=== PATIENT | female | born 1985 | race Caucasian/White ===

== ENCOUNTER 2024-04-30 10:29 | Outpatient (CLI) | payer BC, SELFPAY ==
[2024-04-30 18:16] LABS: Microscopic, Urine URINE MICROSCOPIC (MICROSCOPIC)
[2024-04-30 18:59] LABS: Basophils # 0.1 K/mm3 (0-0.2); Basophils % 1.2 % (0.1-2.0); Eosinophils # 0.1 K/mm3 (0.0-0.4); Eosinophils % 1.8 % (0.1-12.0); Hematocrit 45.3 % (37.0-47.0); Hemoglobin 14.4 g/dL (12.2-16.2); Lymphocytes # 2.4 K/mm3 (0.7-4.5); Lymphocytes % 37.1 % (10-50); Mean Corpuscular HGB Conc 31.9 g/dL (31.8-35.4); Mean Corpuscular Hemoglobin 30.2 pg (27.0-31.2); Mean Corpuscular Volume 94.7 fl (81-99); Mean Platelet Volume 8.6 fl (7.4-10.4); Monocytes # 0.3 K/mm3 (0.1-1.0); Monocytes % 5.3 % (1.7-9.3); Neutrophils # 3.5 K/mm3 (1.8-7.8); Neutrophils % 54.5 % (37.0-80.0); Platelet Count 292 K/mm3 (142-424); Red Blood Count 4.78 M/mm3 (4.20-5.40); Red Cell Distribution Width 14.2 % (11.5-17.5); White Blood Count 6.5 K/mm3 (4.8-10.8)
[2024-04-30 19:10] LABS: Appearance,Urine TURBID (Clear); Bilirubin,Urine Negative (Negative); Blood, Urine Negative (Negative); Color,Urine YELLOW (Yellow); Glucose,Urine (UA) Negative (Negative); Ketones,Urine TRACE (Negative); Leukocyte Esterase,Urine Negative (Negative); Nitrate,Urine Negative (Negative); Protein,Urine Negative (Negative); Specific Gravity, Urine >= 1.030 (1.005-1.030)
[2024-04-30 19:24] LABS: Hemoglobin A1C 4.9 % (4.0-6.0)
[2024-04-30 19:26] LABS: Alanine Aminotransferase 15 U/L (12-78); Albumin Level 4.4 g/dl (3.5-5.0); Albumin/Globulin Ratio 1.4 (1.1-1.8); Alkaline Phosphatase 83 U/L (38-126); Anion Gap 12.2 mEq/L (5-15); Aspartate Amino Transferase 24 U/L (14-36); Bilirubin,Total 0.8 mg/dl (0.2-1.3); Blood Urea Nitrogen 10 mg/dl (7-17); Calcium 9.6 mg/dl (8.4-10.2); Carbon Dioxide 29 mmol/L (22.0-30.0); Chloride 103 mmol/L (98-107); Estimated Glomerular Filt Rate 81 ml/min (>60); GFR (African American) 98 ML/MIN (>60); Globulin 3.2 g/dL (1.3-3.2); Glucose 67 mg/dl (74-100); Potassium 4.2 mmoL/L (3.5-5.1); Sodium 140 mmol/L (136-145); Total Protein,Serum 7.6 g/dl (6.3-8.2)
[2024-04-30 19:29] LABS: Amorphous Sediment,Urine 4+ /lpf; Bacteria,Urine Trace /lpf
[2024-04-30 19:30] LABS: Calcium Oxalate Crystals,Urine 1+ /lpf
[2024-04-30 19:41] LABS: Free T4 (Free Thyroxine) 1.41 ng/dl (0.78-2.19)
[2024-04-30 19:42] LABS: C-Reactive Protein 4.6 mg/L (0-4)
[2024-04-30 19:53] LABS: Erythrocyte Sedimentation Rate 26 mm/hr (0-20)
[2024-04-30 19:55] LABS: 25-OH Vitamin D, Total 37.2 ng/mL (30-100); Thyroid Stimulating Hormone 0.79 uIU/mL (0.465-4.68)
[2024-04-30 20:14] LABS: Vitamin B12 414 pg/mL (239-931)
[2024-04-30 20:15] LABS: Creatinine,Urine Random 267 mg/dL (Not Estab.)
[2024-04-30 20:19] LABS: Microalbumin/Creatinine Ratio 2.6
[2024-05-02 17:04] LABS: Anti-Centromere B Antibodies <0.2 AI (0.0-0.9); Anti-DNA (DS) Ab Qn 1 IU/mL (0-9); Anti-Jo-1 <0.2 AI (0.0-0.9); Anti-Smith Antibody <0.2 AI (0.0-0.9); Antichromatin Antibodies <0.2 AI (0.0-0.9); Antiscleroderma-70 Antibodies <0.2 AI (0.0-0.9); RNP Antibodies 0.4 AI (0.0-0.9); Sjogren's Anti-SS-A <0.2 AI (0.0-0.9); Sjogren's Anti-SS-B <0.2 AI (0.0-0.9)
== END 2024-04-30 23:59 | disposition home or self-care (01) ==
LOC: LAB.DROPOF 05-01 10:29
PROVIDERS: PCP Nurse Practitioner; Visit Provider Nurse Practitioner
DX: R53.83 Other fatigue (principal); R51.9 Headache, unspecified; I10 Essential (primary) hypertension
CPT/HCPCS: 80050; 80053; 81001; 82043; 82306; 82570; 82607; 83036; 84439; 84443; 85025; 85651; 86140; 86225; 86235